=== PATIENT | male | born 1995 | race Hispanic/Latino ===

== ENCOUNTER 2017-05-19 01:31 | Emergency (ER) | payer BC ==
[2017-05-19 01:45] VITALS: O2SAT 100
[2017-05-19] MEDS ORDERED: Sodium Chloride 0.9% 1,000 ML IV STA (02:17)
[2017-05-19 02:38] LABS: BASO % 0.1 % (0.0-2.0); EOS # 0.1 K/uL (0.0-0.7); EOS % 0.5 % (0.0-4.0); HEMATOCRIT 48.8 % (35.0-51.0); LYMPH # 0.3 K/uL (1.0-4.3); LYMPH % 2.5 % (20.0-40.0); MEAN CELL VOLUME 94.2 fl (80.0-94.0); MEAN PLATELET VOLUME 10.1 fl (7.2-11.7); MONO # 0.6 K/uL (0.0-0.8); MONO % 5.8 % (0.0-10.0); NEUT # 10.1 K/uL (1.8-7.0); NEUT % 91.1 % (50.0-75.0); NRBC % 0.4 % (0.0-0.0); PLATELET COUNT 184 K/uL (130-400); RED CELL DISTRIBUTION WIDTH 12.8 % (11.5-14.5); WHITE BLOOD COUNT 11.1 K/uL (4.8-10.8)
[2017-05-19 02:51] LABS: ALB/GLOB RATIO 1.4 (1.0-2.1); ALKALINE PHOSPHATASE 66 U/L (38-126); ALT/SGPT 31 U/L (21-72); AST/SGOT 20 U/L (17-59); BLOOD UREA NITROGEN 21 mg/dl (9-20); CALCIUM 10.3 mg/dL (8.4-10.2); CARBON DIOXIDE 23 mmol/L (22-30); CHLORIDE 100 mmol/L (98-107); GFR AFRICAN-AMERICAN > 60; GLUCOSE,RANDOM 153 mg/dL (75-110); LIPASE 28 U/L (23-300); POTASSIUM 4.2 MMOL/L (3.6-5.0); SODIUM 140 mmol/l (132-148)
[2017-05-19 04:15] LABS: RBC URINE 1 /hpf (0-3); URINE BACTERIA RARE (<OCC); URINE BILIRUBIN NEGATIVE (NEGATIVE); URINE BLOOD NEGATIVE (NEGATIVE); URINE COLOR YELLOW (YELLOW); URINE GLUCOSE (UA) NEG (Normal); URINE KETONE 80 mg/dL (NEGATIVE); URINE LEUKOCYTE ESTERASE NEG Leu/uL (Negative); URINE PROTEIN NEGATIVE (NEGATIVE); URINE UROBILINOGEN 0.2-1.0 mg/dL (0.2-1.0); WBC URINE < 1 /hpf (0-5)
[2017-05-19 04:29] VITALS: BP 119/69; PULSE 83; RESP 17; TEMP 98
[2017-05-19 04:57] LABS: NEUTROPHIL 88 % (42-75); TOTAL CELLS COUNTED 100
--- NOTE | 2017-06-03 03:03 | ED PDOC ---
HPI: Abdomen Time Seen by Provider: 05/19/17 02:03 Chief Complaint (Nursing): Abdominal Pain Chief Complaint (Provider): Vomiting, diarrhea History Per: Patient History/Exam Limitations: no limitations Outside of [place] travel?: No Current Symptoms Are (Timing): Still Present Quality Of Discomfort: Sharp, Cramping Associated Symptoms: Chills, Nausea, Vomiting, Diarrhea. denies: Fever Additional Complaint(s): 21yo male, presents to ED with complaints of multiple episodes of vomiting and diarrhea, non-bloody, non-bilious, with associated abdominal pain. Patient states pain is cramping and sharp in nature and he has associated chills. Patient denies any fever, recent foreign travels. No other medical complaints. Past Medical History Reviewed: Historical Data, Nursing Documentation, Vital Signs Vital Signs: Last Vital Signs Temp 98.0 F 05/19/17 04:28 Pulse 83 05/19/17 04:28 Resp 17 05/19/17 04:28 BP 119/69 05/19/17 04:28 Pulse Ox 100 06/03/17 21:32 - Medical History PMH: No Chronic Diseases - Surgical History Surgical History: No Surg Hx - Family History Family History: States: No Known Family Hx - Social History Current smoker - smoking cessation education provided: No Alcohol: Occasional Drugs: Denies - Home Medications Home Medications: Ambulatory Orders Medication Instructions Recorded Dicyclomine [Bentyl] 20 mg PO Q12 PRN #20 tab 05/19/17 Ondansetron ODT [Zofran ODT] 4 mg PO Q6 PRN #16 odt 05/19/17 - Allergies Allergies/Adverse Reactions: Allergies Allergy/AdvReac Type Severity Reaction Status Date / Time No Known Allergies Allergy Verified 05/19/17 01:43 Review of Systems ROS Statement: Except As Marked, All Systems Reviewed And Found Negative Constitutional: Positive for: Chills. Negative for: Fever Gastrointestinal: Positive for: Nausea, Vomiting, Abdominal Pain, Diarrhea Physical Exam - Reviewed Nursing Documentation Reviewed: Yes Vital Signs Reviewed: Yes - Physical Exam Appears: Positive for: Non-toxic Head Exam: Positive for: ATRAUMATIC Skin: Positive for: Normal Color Eye Exam: Positive for: Normal appearance ENT: Positive for: Other (tacky mucuous membranes) Neck: Positive for: Supple Cardiovascular/Chest: Positive for: Regular Rate, Rhythm Respiratory: Positive for: Normal Breath Sounds. Negative for: Respiratory Distress Gastrointestinal/Abdominal: Positive for: Normal Exam, Soft. Negative for: Tenderness Neurologic/Psych: Positive for: Alert, Oriented. Negative for: Motor/Sensory Deficits - Laboratory Results Result Diagrams: 05/19/17 02:34 05/19/17 02:34 - ECG O2 Sat by Pulse Oximetry: 100 (RA) Pulse Ox Interpretation: Normal Medical Decision Making Medical Decision Making: Impression: 21yo male with nausea, vomiting and abdominal pain Plan: -- Labs -- Bentyl 20 mg IV -- Zofran 4 mg IV -- IV Fluids Reassess Time: 427 Upon reassessment, patient states his pain has improvement. Stable for discharge home. Diagnosis of gastroenteritis. Scribe Attestation: Documented by Krysta Rae acting as a scribe for Ricardo Boyd MD. Provider Attestation: All medical record entries made by the Scribe were at my direction and personally dictated by me. I have reviewed the chart and agree that the record accurately reflects my personal performance of the history, physical exam, medical decision making, and the department course for this patient. I have also personally directed, reviewed, and agree with the discharge instructions and disposition. Disposition - Clinical Impression Clinical Impression: Gastroenteritis - Disposition Disposition: Routine/Home Disposition Time: 03:00 Condition: STABLE Prescriptions: Dicyclomine [Bentyl] 20 mg PO Q12 PRN #20 tab PRN Reason: abdominal pain/diarrhea Ondansetron ODT [Zofran ODT] 4 mg PO Q6 PRN #16 odt PRN Reason: Nausea/Vomiting Instructions: Gastroenteritis (ED) Forms: [email or web address] ([place])
== END 2017-05-19 04:27 | disposition home or self-care (01) ==
LOC: H.ER 01:31
DX: K52.9 Noninfective gastroenteritis and colitis, unspecified (principal)
CPT/HCPCS: 80053; 81003; 83690; 85025; 96360; 99283; J2405; J7040